=== PATIENT | male | born 1955 | race Caucasian/White ===

== ENCOUNTER 2020-02-20 11:49 | Outpatient (CLI) | payer MEDICARE, SELFPAY ==
--- NOTE | 2020-02-20 11:57 | CT_ITS ---
WS: [id number] CT ABDOMEN AND PELVIS NONCONTRAST HISTORY: ABD PAIN, inflammatory bowel disease. Prior surgery. TECHNIQUE: Imaging performed through the abdomen and pelvis. Coronal and sagittal reformats are submi tted. All CT scans at [facility] use at least one of these dose optimization techniques: automated exposure control; mA and/or kV adjustment per patient size (includes targeted exams where d ose is matched to clinical indication); or iterative reconstruction. DLP: 1147.73 mGy-cm. COMPARISON: None available. Lower thorax: Lung bases are clear. No hiatal hernia. Liver: Normal, no mass or intrahepatic dilatation. Gallbladder: Small amount of increased density in the dependent portion of the gallbladder. No inflam mation. Pancreas: Normal. Spleen: Normal. Adrenal glands: RIGHT adrenal mass is well-circumscribed measuring 2.8 cm. Normal LEFT adrenal gland. Right kidney: Normal size with no stones, masses or atrophy. Left kidney: Small, 2 to 3 mm nonobstructing calcifications. Aorta: Mild atherosclerosis with no aneurysm. No free fluid, intraperitoneal air or significant lymphadenopathy. GI tract: No GI tract obstruction. The appendix is not definitely visualized. There are numerous dive rticula within the descending and sigmoid colon. No acute inflammation. Surgical anastomotic site of the distal sigmoid without adjacent soft tissue mass. No stricture. Abdominal wall: Intact. Pelvis: Normally distended urinary bladder. Central prostate gland calcifications. Osseous structures: No osteoblastic or osteolytic bone disease. Healed rib fracture in the posterior inferior RIGHT thorax. CT/CT abdomen pelvis wo con [id number] IMPRESSION: 1. Sigmoid anastomotic site is normal. No recurrent mass or adjacent inflammat ion or stricture. 2. Diverticulosis within the descending and sigmoid colon. No evidence for acu te diverticulitis. 3. Suspect there may be small stones layering in the gallbladder. To confirm c holelithiasis RIGHT upper quadrant ultrasound can be obtained. 4. Well-circumscribed RIGHT adrenal mass measures 2.8 cm. With no history of m alignancy this is most likely a benign adenoma.
== END 2020-02-20 11:50 | disposition home or self-care (01) ==
LOC: RADWPI 11:56
PROVIDERS: Family Provider Internal Medicine; PCP Internal Medicine; Visit Provider Nurse Practitioner Family
DX: R10.9 Unspecified abdominal pain (principal); Z98.0 Intestinal bypass and anastomosis status; K58.9 Irritable bowel syndrome, unspecified; K57.30 Diverticulosis of large intestine without perforation or abscess without bleeding; R19.00 Intra-abdominal and pelvic swelling, mass and lump, unspecified site
CPT/HCPCS: 74176

== ENCOUNTER 2020-03-10 06:36 | Outpatient (CLI) | payer MEDICARE, SELFPAY ==
--- NOTE | 2020-03-10 06:53 | US_ITS ---
WS: [id number] RIGHT UPPER QUADRANT ULTRASOUND HISTORY: ABDOMINAL PAIN COMPARISON: None available. Liver: 13.4 cm in length. Mildly coarsened echotexture. No mass. Normal bile ducts. Gallbladder: Small amount of sludge and tiny layering stones in the gallbladder. No pericholecystic f luid or gallbladder wall thickening. CBD: 0.4 cm Pancreas: Poorly visualized. Right kidney: 10.6 cm in length. Normal echogenicity with no mass or hydronephrosis. Aorta and IVC: Unremarkable. No ascites. US/US gall bladder [id number] IMPRESSION: 1. Small amount of gallbladder sludge and tiny stones. No evidence for acute c holecystitis. 2. No biliary dilatation.
== END 2020-03-10 06:37 | disposition home or self-care (01) ==
LOC: RAD 06:40
PROVIDERS: PCP Nurse Practitioner Family; Visit Provider Nurse Practitioner Family
DX: R10.9 Unspecified abdominal pain (principal); K80.80 Other cholelithiasis without obstruction
CPT/HCPCS: 76705

== ENCOUNTER 2020-04-08 06:49 | Day surgery (SDC) | payer MEDICARE, SELFPAY ==
[2020-04-07 13:28] VITALS: BMI 35.9
[2020-04-08 07:17] VITALS: BP 108/79; PULSE 90; RESP 18; TEMP 36.6; O2SAT 96
[2020-04-08] MEDS: sodium chloride 0.9% 1,000 ML 30 ML IV (07:36)
--- NOTE | 2020-04-08 07:36 | P.ANESASSM_ITS ---
Pre-Anesthetic Assessment Pre-Anesthetic Assessment: Height/Weight: Height 1.68 m Weight 101.151 kg Temp Pulse Resp BP Pulse Ox 97.8 F 90 18 108/79 96 04/08/20 07:17 04/08/20 07:17 04/08/20 07:17 04/08/20 07:17 04/08/20 07:17 Preop Diagnosis: Hematochezia Proposed Procedure: Operation Date: 04/08/20 08:40 Proposed Procedures p EGD 27509 R10.9(Not Applicable) - Carlton Hernandes MD s Colonoscopy 24805 K92.1(Not Applicable) - Carlton Hernandes MD Familial anesthetic complications: None Was Beta Alesha taken within 24 hours: N/A Last intake: Intake Last Liquid Date 04/07/20 Last Liquid Time 23:00 Last Solid Date 04/06/20 Last Solid Time 20:00 Social: Social History: No alcohol and No tobacco Exam: Pre-Anes Outpt Exam: alert, oriented x 3, clear to auscultation bi laterally and regular rate & rhythm Airway: Cervical ROM: WNL Additional comments: multiple missing teeth Pulmonary: Pulmonary: Asthma (mild) CV/HEM: CV/HEM: HTN : : None reported Hepatic: Hepatic: None reported GI: GI: GERD Metabolic: Metabolic: None reported Comments: pre - DM Musc/skel: Musc/skel: None reported Neuropsych: Neuropsych: None reported Anesthetic Plan: ASA status: 3 Anesthesia: MAC Risk of > 500 ml blood loss (7ml/kg in children): No Meds/Allergies Current Medications: Current Medications Generic Name Dose Route Start Last Admin Trade Name Freq PRN Reason Stop Dose Admin Sodium Chloride 1,000 mls @ 30 ml s/hr 04/08/20 07:30 04/08/20 07:36 Sodium Chloride 0.9% IV 04/09/20 07:29 30 mls/hr .Q24H MERA Administration PFSH Anesthesia PFSH: Medical History (Updated 03/09/20 @ 16:12 by Carlton Hernandes MD) Abdominal pain Anxiety and depression GERD (gastroesophageal reflux disease) Hematochezia History of bleeding ulcers Renal mass Surgical History History of appendectomy History of colon resection History of colonoscopy History of hernia repair Family History Denies family history of Anesthesia complication Bleeding disorder Social History Smoking and tobacco status: never smoked Data Anesthesia Cardiac Studies: No Data to Display
--- NOTE | 2020-04-08 08:53 | W.PM.OPSUD ---
Surgery/Procedure H&P Update DATE OF PROCEDURE: April 08, 2020 DATE H&P PERFORMED: 03/09/20 H&P UPDATE INFORMATION: I have reviewed H&P completed within last 30 days, I have examined patient prior to procedure and No changes to prior documentation PREOP DIAGNOSIS: Hematochezia PRIMARY INDICATION FOR PROCEDURE: The same PLANNED PROCEDURE: Operation Date: 04/08/20 08:40 Proposed Procedures p EGD 22911 R10.9(Not Applicable) - Carlton Hernandes MD s Colonoscopy 05264 K92.1(Not Applicable) - Carlton Hernandes MD
[2020-04-08 09:30] VITALS: BP 91/71; PULSE 82; RESP 16; TEMP 37.1; O2SAT 92
--- NOTE | 2020-04-08 09:31 | ANE.PACU2 ---
Inpatient post-anesthesia follow up: Airway intact: Yes Vital signs: Temperature 98.7 F Pulse Rate 82 Respiratory Rate 16 Blood Pressure 91/71 Pulse Oximetry 92 Oxygen Delivery Me thod Nasal Cannula Oxygen Flow Rate 2 Fraction of Inspir ed Oxygen Hydration adequate: Yes Nausea and vomiting: No Pain level: 1 Mental status: Baseline
[2020-04-13 06:55] LABS: H. Pylori / CLO Test Negative
== END 2020-04-08 09:58 | disposition home or self-care (01) ==
PROVIDERS: PCP Nurse Practitioner Family; Visit Provider Surgery
PROC: 0DJ08ZZ Inspection of Upper Intestinal Tract, Via Natural or Artificial Opening Endoscopic (ICD-10-PCS; CPT 43235; principal; 2020-04-08 08:40)
PROC: 0DJD8ZZ Inspection of Lower Intestinal Tract, Via Natural or Artificial Opening Endoscopic (ICD-10-PCS; CPT 45378; 2020-04-08 08:40)
DX: K92.1 Melena (principal); R10.9 Unspecified abdominal pain; K57.30 Diverticulosis of large intestine without perforation or abscess without bleeding; K29.70 Gastritis, unspecified, without bleeding; J45.909 Unspecified asthma, uncomplicated; I10 Essential (primary) hypertension; K21.9 Gastro-esophageal reflux disease without esophagitis; E11.9 Type 2 diabetes mellitus without complications
CPT/HCPCS: 12345; 43239; 45378; 87077; J2704; J7030

== ENCOUNTER → 2020-12-01 14:35 | Outpatient (BNVA) | payer MEDICARE, SELFPAY | PROVIDERS: PCP Nurse Practitioner Family; Visit Provider Podiatrist Foot & Ankle Surgery | DX: M79.671 Pain in right foot (principal); M19.071 Primary osteoarthritis, right ankle and foot; M77.31 Calcaneal spur, right foot | CPT/HCPCS: 73630 ==

== ENCOUNTER 2021-11-18 01:09 | Inpatient (IN) | payer MEDICARE, SELFPAY ==
[2021-11-18] VITALS (110 sets, daily range): BP systolic 64–127; BP diastolic 41–87; PULSE 64–99; RESP 13–33; TEMP 36.4; O2SAT 85–100; BMI 35.7
--- NOTE | 2021-11-18 01:21 | ECG_ITS ---
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 Measurements Intervals [place] Rate: 74 P: 245 MD: 121 QRS: -25 QRSD: 138 T: 37 QT: 441 QTc: 492 Interpretive Statements JUNCTIONAL RHYTHM BORDERLINE LEFT AXIS DEVIATION [QRS AXIS < -20] RIGHT BUNDLE BRANCH BLOCK [120+ ms QRS DURATION, UPRIGHT V1, 40+ ms S IN I/aVL/V4/V5/V6] Compared to ECG 11/18/2021 03:24:07 Junctional rhythm now present Sinus rhythm no longer present Electronically Signed On 11-19-2021 9:28:03 THIRD HAND by Perla Santiago M.D. [id number]
--- NOTE | 2021-11-18 01:21 | XRR_ITS ---
PROCEDURE INFORMATION: Exam: XR Chest Exam date and time: 11/18/2021 1:21 AM Age: 66 years old Clinical indication: Patient HX: General weakness with diaphoresis. TECHNIQUE: Imaging protocol: XR of the chest. Views: 1 view. COMPARISON: CT abdomen pelvis con [id number] 02/20/2020 12:22 PM FINDINGS: Lungs: There are patchy opacity seen in the left lower hemithorax, findings that may represent atelectasis although left basilar pneumonia cannot be excluded. Some strandy opacities are seen in the right lung base likely representing atelectasis. Pleural spaces: Unremarkable. No pleural effusion. No pneumothorax. Heart/Mediastinum: Unremarkable. No cardiomegaly. Bones/joints: Unremarkable. XR/XR chest 1V portable [id number] IMPRESSION: 1. Patchy opacities in the left lower hemithorax compatible with a left basilar atelectasis versus pneumonia. 2. Some strandy opacities in the right lung base likely represents atelectasis.
--- NOTE | 2021-11-18 01:22 | CTR_ITS ---
PROCEDURE INFORMATION: Exam: CT Head Without Contrast Exam date and time: 11/18/2021 1:22 AM Age: 66 years old Clinical indication: Patient HX: General weakness with diaphoresis. Patient states history of skull fracture as a pediatric. TECHNIQUE: Imaging protocol: Computed tomography of the head without contrast. Radiation optimization: All CT scans at this facility use at least one of these dose optimization techniques: automated exposure control; mA and/or kV adjustment per patient size (includes targeted exams where dose is matched to clinical indication); or iterative reconstruction. COMPARISON: No relevant prior studies available. RADIATION DOSE METRICS: Total DLP (mGy-cm): 1233.16 FINDINGS: Brain: There is hypoattenuation seen within the deep white matter and subcortical white matter of the right occipital lobe possibly representing a chronic infarction. Cerebral ventricles: See Vasculature finding. Paranasal sinuses: Mucosal thickening and fluid is seen within the left maxillary sinus. Mastoid air cells: Visualized mastoid air cells are well aerated. Vasculature: There is dolichoectasia of the left vertebral artery and basilar artery. There is a rounded hyperdense mass seen the level of the foramen of Monro measuring approximately 7.5 x 8.7 x 6.4 mm. This may represent a colloid cyst. Bones/joints: Unremarkable. No acute fracture. Soft tissues: Unremarkable. CT/CT head wo con* [id number] IMPRESSION: 1. A hyperdense rounded mass at the foramina Duran measuring 7.5 x 8.7 x 6.4 mm likely represents a colloid cyst. 2. Hypoattenuation present in the deep white matter and subcortical white matter of the right occipital lobe may represent a chronic infarction. There are no prior imaging studies available for comparison. As such, further evaluation with MRI including diffusion-weighted imaging is suggested. 3. 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
[2021-11-18] MEDS: sodium chloride 0.9% 1,000 ML 999 ML IV ×3 (02:00→04:18)
--- NOTE | 2021-11-18 02:01 | ED_ITS ---
HPI - General Adult General: Chief complaint: General Medical Stated complaint: WEAKNESS, DIFF WALKING Time Seen by Provider: 11/18/21 01:36 Source: patient and EMS Mode of arrival: EMS Limitations: no limitations History of Present Illness: HPI narrative: 66-year-old male states he got his Moderna booster 1 week ago states that ever since then he has been having increasing weakness malaise loss of appetite decreased oral intake. States he is also had some shortness of breath. Denies any cough denies any fever pulse ox here is 95% on room air. He states that today has had just extreme malaise with feeling dehydrated and having a hard time just getting out of bed due to his weakness. Denies any urinary complaints he is able speak full sentences here is well-appearing here. Associated symptoms: Reports dyspnea and malaise; Deny chest pain, headache(s), nausea, rash or vomiting Review of Systems Const: Reports: body aches, fatigue and malaise Eyes: Denies: blurry vision or eye discomfort ENMT: Denies: throat pain or dental pain Card: Denies: chest pain Resp: Reports: dyspnea GI: Denies: abdominal pain, nausea, vomiting or diarrhea : Denies: dysuria Musc: Denies: neck pain or back pain Skin/Breast: Denies: rash Neuro: Denies: headache(s) Psych: Denies: depression Yazan/Lymph: Denies: easy bruising All/Imm: Denies: urticaria PFSH ED PFSH: Medical History (Updated 11/18/21 @ 04:18 by Arley Mijares MD) Abdominal pain Anxiety and depression GERD (gastroesophageal reflux disease) Hematochezia History of bleeding ulcers Renal mass Surgical History History of appendectomy History of colon resection History of colonoscopy History of hernia repair Family History Denies family history of Anesthesia complication Bleeding disorder Social History Smoking and tobacco status: never smoked Lives independently: Yes Household members: spouse Marital status: Current occupational status: retired History of recent travel: No Current gender identity: Male Physical Exam Const: COMMON NORMALS: no acute distress, patient oriented x3 and healthy appearing HENMT: COMMON NORMALS: normocephalic and atraumatic HEAD & SCALP: normocephalic and atraumatic Eye: COMMON NORMALS: Equal, round and reactive pupils present and EOMs intact bilaterally PUPIL: Yes Equal, round and reactive pupils present Neck/C-Spine: COMMON NORMALS: full ROM and supple Chest: COMMONS NORMALS: normal inspection of the chest and normal palpation of entire chest wall Resp: COMMON NORMALS: normal respiratory effort, No retractions, No use of accessory muscles and clear to auscultation bilaterally AUSCULTATION: clear to auscultation bilaterally Cardio: COMMON NORMALS: regular rate, regular rhythm and No murmurs present (Cardio) RATE: regular rate RHYTHM: regular rhythm GI: COMMON NORMALS: Normal to inspection, nondistended, normoactive bowel sounds present, Soft to palpation, non-tender and no masses PALPATION: Yes Soft to palpation Extremity: COMMON NORMALS: normal to inspection and full ROM Neuro: COMMON NORMALS: patient oriented x3, moves all extremities and no focal motor deficits Psych: COMMON NORMALS: mental status grossly normal, Normal thought process present and cooperative THOUGHT PROCESS: Normal thought process present Skin: COMMON NORMALS: no rashes or lesions noted and no wounds GENERAL SKIN EXAM: no rashes or lesions noted Procedures Central Line Placement Right IJ: Time Out Performed: Yes Patient Placed on Monitor/Pulse Ox: Yes MD Prep: mask and gown Central Line Prep: Povidone-Iodine 1% Local Anesthetic: lidocaine 1% Amount of anesthesia used (mL): 5 Ultrasound Used for Placement: Yes Central Line Lumen Inserted: triple Post Procedure: sutured in place, good blood return, all ports aspirated, flushed, capped and sterile dressing applied Post Procedure X-Ray: tip of catheter in good position and no pneumothorax seen Patient Tolerated Procedure: well Complications: none Course Vital Signs: Vital signs: Vital Signs Temperature 97.6 F 11/18/21 02:56 Pulse Rate 68 11/18/21 02:56 Respiratory Rate 19 H 11/18/21 02:56 Blood Pressure 64/41 11/18/21 02:56 Pulse Oximetry 96 11/18/21 02:56 MDM - General Adult MDM Narrative: Medical decision making narrative: Patient presents here with hypotension likely due to dehydration and septic shock x-ray shows a possible pneumonia he had no hypoxia here. Labs do show dehydration blood pressure did not improve after IV fluids central line was started and patient started on pressors. He has been given IV antibiotics as well. D-dimer slightly elevated likely from infection he has no signs of pulmonary embolism cannot do a CT angio at this time due to his D-dimer. EKG is normal. Lab Data: Labs: Lab Results 11/18/21 11/18/21 11/18/21 02:40 02:40 02:40 WBC 8.6 10^3/uL 10^3/ uL (4.0-10.0) RBC 3.80 10^6/uL L 10 ^6/uL (4.1-5.3) Hgb 11.4 g/dL L g/dL (11.7-16.6) Hct 35.8 % L % (42.0-52.0) MCV 94.2 fl H fl (80-94) MCH 30.0 pg pg (28.0-34.0) MCHC 31.8 g/dL g/dL (30.0-36.0) RDW 14.7 % % (12.1-15.1) Plt Count 203 10^3/cmm 10^3 /cmm (130-400) MPV 10.7 fL H fL (7.4-10.4) Neut % (Auto) 70.6 % % Lymph % (Auto) 17.7 % % [place] % (Auto) 11.0 % % Eos % (Auto) 0.0 % % Baso % (Auto) 0.1 % % Neut # (Auto) 6.06 10^3/uL 10^3 /uL (1.8-7.7) Lymph # (Auto) 1.5 10^3/uL 10^3/ uL (0.8-4.8) [place] # (Auto) 0.9 10^3/uL 10^3/ uL (0.2-0.9) Eos # (Auto) 0.0 10^3/uL 10^3/ uL (0.0-0.8) Baso # (Auto) 0.0 10^3/uL 10^3/ uL (0.0-0.1) Nucleated RBC % (a uto) 0 % % Nucleated RBCs # 0.0 /100WBC /100W BC D-Dimer Sodium 130 mmol/L L mmol /L (136-145) Potassium 5.3 mmol/L H mmol /L (3.5-5.1) Chloride 94 mmol/L L mmol/ L (98-107) Carbon Dioxide 15 mmol/L L mmol/ L (22-29) Anion Gap 26.3 H (5-19) BUN 42 mg/dL H mg/dL (8-23) Creatinine 3.4 mg/dL H mg/dL (0.7-1.2) GFR Calculation 18.1 mL/min L mL/ min (90-130) Glucose 241 mg/dL H mg/dL (65-115) Calculated Osmolal ity 288 mOsm/kg mOsm/ kg (285-295) Lactic Acid Calcium 7.8 mg/dL L mg/dL (8.5-10.5) Total Bilirubin 0.7 mg/dL mg/dL (0.15-1.2) AST 75 U/L H U/L (0-40) ALT 56 U/L H U/L (0-41) Alkaline Phosphata se 72 IU/L IU/L (40-130) Troponin T Baselin e 60 ng/L H ng/L (0-15) NT-Pro-B Natriuret Pep 235 pg/mL H pg/mL (0-125) Total Protein 6.5 g/dL L g/dL (6.6-8.7) Albumin 3.7 g/dL g/dL (3.5-5.2) Globulin 2.8 g/dL g/dL (1.3-4.6) SARS-CoV-2 Ag (Rap id) 11/18/21 11/18/21 11/18/21 02:40 02:40 02:51 WBC RBC Hgb Hct MCV MCH MCHC RDW Plt Count MPV Neut % (Auto) Lymph % (Auto) [place] % (Auto) Eos % (Auto) Baso % (Auto) Neut # (Auto) Lymph # (Auto) [place] # (Auto) Eos # (Auto) Baso # (Auto) Nucleated RBC % (a uto) Nucleated RBCs # D-Dimer 1.52 ug/mIFEU H u g/mIFEU (0-0.59) Sodium Potassium Chloride Carbon Dioxide Anion Gap BUN Creatinine GFR Calculation Glucose Calculated Osmolal ity Lactic Acid 3.6 mmol/L H mmol /L (0.5-2.2) Calcium Total Bilirubin AST ALT Alkaline Phosphata se Troponin T Baselin e NT-Pro-B Natriuret Pep Total Protein Albumin Globulin SARS-CoV-2 Ag (Rap id) Negative (Negative) EKG Data^: EKG 1: Attestation: I personally reviewed and interpreted this EKG as follows: EKG interpretation date: 11/18/21 EKG interpretation time: 03:24 Interpretation: NSR HR [address] OR T WAVE ABNORMALITIES QRS 139 QTC 482 Computer generated interpretation: Head CT 11/18/21 01:22 IMPRESSION: 1. A hyperdense rounded mass at the foramina Duran measuring 7.5 x 8.7 x 6.4 mm likely represents a colloid cyst. 2. Hypoattenuation present in the deep white matter and subcortical white matter of the right occipital lobe may represent a chronic infarction. There are no prior imaging studies available for comparison. As such, further evaluation with MRI including diffusion-weighted imaging is suggested. 3. 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 Chest X-Ray 11/18/21 04:04 IMPRESSION: 1. Right internal jugular vein central venous line placed with tip at the level of the superior vena cava. 2. Strandy and patchy opacities in the left lung base again seen possibly representing atelectasis although left basilar pneumonia cannot be excluded. Critical Care Time Critical Care Time: Critical Care Time: Yes Total Critical Care Time: 45 Attestation: The high probability of a clinically significant, sudden or life threatening deterioration of the patient's [cv, resp] system(s) required my full and direct attention, intervention and personal management. The critical care time is as shown. This time is in addition to time spent performing any reported procedures but includes the following: [x] Data and vital sign review and interpretation [x] Patient assessment, examination and intervention [x] Documentation [x] Medication orders and management Discharge Plan Discharge Patient Disposition: Admitted As Inpatient Admit Provider: Dean Kenny Clinical Impression: Septic shock, Pneumonia, Dehydration Condition: Stable Coding Level of Care Code ED Link Machine Operator for Chg Fwd Exam Comprehensive
[2021-11-18 02:46] LABS: Basophils % 0.1 %; Hematocrit 35.8 % (42.0-52.0); Hemoglobin 11.4 g/dL (11.7-16.6); Lymphocytes # 1.5 10^3/uL (0.8-4.8); Lymphocytes % 17.7 %; Mean Corpuscular HGB Conc 31.8 g/dL (30.0-36.0); Mean Corpuscular Volume 94.2 fl (80-94); Mean Platelet Volume 10.7 fL (7.4-10.4); Monocytes # 0.9 10^3/uL (0.2-0.9); Neutrophils # 6.06 10^3/uL (1.8-7.7); Neutrophils % 70.6 %; Nucleated Red Blood Cells % 0 %; Platelet Count 203 10^3/cmm (130-400); Red Cell Distribution Width 14.7 % (12.1-15.1); White Blood Count 8.6 10^3/uL (4.0-10.0)
[2021-11-18 03:04] LABS: Lactic Sepsis W/Reflex 3.6 mmol/L (0.5-2.2)
[2021-11-18 03:05] LABS: Troponin(5th) Baseline 60 ng/L (0-15)
[2021-11-18 03:06] LABS: D Dimer 1.52 ug/mIFEU (0-0.59)
[2021-11-18 03:20] LABS: SARS Covid-2 Antigen Negative (Negative)
[2021-11-18 03:20] LABS: Alanine Aminotransferase 56 U/L (0-41); Albumin Level 3.7 g/dL (3.5-5.2); Alkaline Phosphatase 72 IU/L (40-130); Aspartate Amino Transferase 75 U/L (0-40); Blood Urea Nitrogen 42 mg/dL (8-23); Calcium 7.8 mg/dL (8.5-10.5); Carbon Dioxide 15 mmol/L (22-29); Globulin 2.8 g/dL (1.3-4.6); Glomerular Filtration Rate 18.1 mL/min (90-130); Glucose 241 mg/dL (65-115); Total Bilirubin 0.7 mg/dL (0.15-1.2); Total Protein 6.5 g/dL (6.6-8.7)
[2021-11-18 03:21] LABS: Anion Gap 26.3 (5-19); Chloride 94 mmol/L (98-107); Osmolality Calculated 288 mOsm/kg (285-295); Potassium 5.3 mmol/L (3.5-5.1); Sodium 130 mmol/L (136-145)
--- NOTE | 2021-11-18 03:21 | ECG_ITS ---
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 Measurements Intervals [place] Rate: 67 P: 62 UT: 176 QRS: 9 QRSD: 139 T: 55 QT: 467 QTc: 494 Interpretive Statements SINUS RHYTHM RIGHT BUNDLE BRANCH BLOCK [120+ ms QRS DURATION, UPRIGHT V1, 40+ ms S IN I/aVL/V4/V5/V6] No previous ECG available for comparison Electronically Signed On 11-18-2021 19:19:46 PROGRAM ASSOCIATE by Perla Santiago M.D. [email or web address] [email or web address] memorial [id number]
[2021-11-18 03:25] LABS: NT Pro B Type Natriuretic Pept 235 pg/mL (0-125)
--- NOTE | 2021-11-18 04:04 | XRR_ITS ---
PROCEDURE INFORMATION: Exam: XR Chest Exam date and time: 11/18/2021 4:04 AM Age: 66 years old Clinical indication: Other vascular access device placement or adjustment; Central line, non-tunnelled; Patient HX: Check S/P central line placement TECHNIQUE: Imaging protocol: XR of the chest. Views: 1 view. COMPARISON: CR (CHEST, ) 11/18/2021 1:38 AM FINDINGS: Tubes, catheters and devices: A right internal jugular vein central venous line is placed with its tip at the level of the superior vena cava. Lungs: See Bones/joints finding. Pleural spaces: Unremarkable. No pleural effusion. No pneumothorax. Heart/Mediastinum: Unremarkable. No cardiomegaly. Bones/joints: There is evidence of healed right rib fractures. Strandy opacities are again seen within the left lower hemithorax compatible with atelectasis versus infiltrates and pneumonia. XR/XR chest 1V portable [id number] IMPRESSION: 1. Right internal jugular vein central venous line placed with tip at the level of the superior vena cava. 2. Strandy and patchy opacities in the left lung base again seen possibly representing atelectasis although left basilar pneumonia cannot be excluded.
[2021-11-18] MEDS: cefTRIAXone 1,000 MG in sodium chloride 0.9% (plus) 50 ML 100 MG IV (04:17)
[2021-11-18 04:31] LABS: Reflex Lactate Order REFLEX LACTIC ORDERD
--- NOTE | 2021-11-18 04:52 | P.HP_ITS ---
Providers/Chief Complaint Admitting Physician: Dean Kenny MD Primary Care Provider: Aaliyah Grayson APN Chief Complaint: WEAKNESS, DIFF WALKING History of Present Illness Christophe Ramon is a 66 year old male with no significant past medical history came in with chief complaint of worsening malaise, generalized weakness, going on for the last 1 week, it started after he took his booster dose of Moderna, Since then he has been feeling progressively weak, has experienced decreasing appetite and poor oral intake. Has mild shortness of breath, no cough. He denies any fever, chest pain, palpitation, nausea vomiting. Upon arrival in the ER he was found to be severely hypotensive with systolic blood pressure in 60s. He was given 3 L normal saline bolus, as well as was started on Levophed, with improvement in his blood pressure, he also received a dose of ceftriaxone and azithromycin. Pertinent imaging studies: X-ray chest: Patchy opacities in the left lower hemithorax compatible with a left basilar atelectasis versus pneumonia. 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 No acute intracranial pathology. EKG: SR with right bundle branch block Pertinent labs: WBC 8.6 H&H 11.4/ 35 , PLT : 203 , serum sodium: 130, serum potassium 5.3, serum bicarbonate 15, BUN and serum creatinine:42/3.4 , AST 75 ALT 56 , ALP : 72 , Lactic acid 3.6, D-dimer: 1.52 Baseline troponin: 60 proBNP 235 Rapid COVID-negative Review of Systems Const: Denies: diaphoresis Card: Denies: palpitations, edema, swelling of feet/ankles, dyspnea on exe rtion, orthopnea or leg pain with exertion Resp: Denies: productive cough, wheezing or pain on inspiration GI: Denies: abdominal pain, nausea, vomiting, diarrhea or constipation : Denies: flank pain or difficulty urinating Musc: Denies: back pain, extremity pain or extremity swelling Neuro: Denies: headache(s), difficulty walking or confusion Medications/Allergies Home Medications Medication Instructions Recorded Confirmed Last Taken Type cyclobenzaprine 10 mg tablet 10 mg PO TID 03/04/20 01/07/21 Unknown History lorazepam 0.5 mg tablet 0.5 mg PO BID PRN 03/04/20 01/07/21 Unknown History pantoprazole 40 mg tablet,delayed 40 mg PO BID tab 03/04/20 01/07/21 Unknown History release tizanidine 4 mg capsule 4 mg PO BID PRN 03/04/20 01/07/21 Unknown History sulfamethoxazole 800 1 tab PO BID #20 tab 01/07/21 01/07/21 Unknown Rx mg-trimethoprim 160 mg tablet Allergies Allergy/AdvReac Type Severity Reaction Status Date / Time shellfish derived Allergy Severe ALGY-Anaphy Verified 01/07/21 16:49 laxis Penicillins Allergy Unknown Unknown Verified 01/07/21 16:49 PFSH Acute PFSH: Medical History (Updated 11/18/21 @ 04:56 by Dean Kenny MD) Abdominal pain Anxiety and depression GERD (gastroesophageal reflux disease) Hematochezia History of bleeding ulcers Renal mass Surgical History History of appendectomy History of colon resection History of colonoscopy History of hernia repair Family History Denies family history of Anesthesia complication Bleeding disorder Social History Smoking and tobacco status: never smoked Lives independently: Yes Household members: spouse Marital status: Current occupational status: retired History of recent travel: No Current gender identity: Male Vitals/I&O/Wt Last Vital Signs Temp 97.6 F 11/18/21 02:56 Pulse 66 11/18/21 04:25 Resp 18 11/18/21 04:25 BP 119/70 11/18/21 04:25 Pulse Ox 95 11/18/21 04:25 Weight last 48 hrs Weight 100.465 kg Physical Exam Const: COMMON NORMALS: patient oriented x3 HENMT: COMMON NORMALS: normocephalic and atraumatic HEAD & SCALP: normocephalic and atraumatic Resp: COMMON NORMALS: clear to auscultation bilaterally EFFORT & INSPECTION: Yes symmetric chest movement AUSCULTATION: clear to auscultation bilaterally Cardio: COMMON NORMALS: regular rate, regular rhythm, S1 normal heart sound present, S2 normal heart sound present, No gallops present (Cardio), No murmurs present (Cardio), No rub (Cardio) and Peripheral pulses 2+ throughout RATE: regular rate RHYTHM: regular rhythm HEART SOUNDS: S1 normal heart sound present and S2 normal heart sound present PERIPHERAL PULSES: Peripheral pulses 2+ throughout GI: COMMON NORMALS: Normal to inspection, nondistended, normoactive bowel sounds present, Soft to palpation, non-tender, No hepatosplenomegaly present and no masses AUSCULTATION: Yes normoactive bowel sounds PALPATION: Yes Soft to palpation and Yes No hepatosplenomegaly present RECTAL EXAM: Yes deferred Extremity: COMMON NORMALS: no clubbing, cyanosis or edema and no pedal edema Neuro: COMMON NORMALS: patient oriented x3 Data : 11/18/21 02:40 11/18/21 02:40 Micro: Microbiology 11/18/21 02:40 Blood Culture - Preliminary Blood SPECIMEN COLLECTED 11/18/21 02:40 Blood Culture - Preliminary Blood SPECIMEN COLLECTED A&P Assessment and plan (1) Shock: Status: Acute (2) Dehydration: Status: Acute (3) BART (acute kidney injury): Status: Acute (4) Hyponatremia: Status: Acute (5) Hyperkalemia: Status: Acute (6) Metabolic acidosis: Status: Acute (7) Elevated lactic acid level: Status: Acute Additional A&P Information 66 year old male with no significant past medical history came in with chief complaint of worsening malaise, generalized weakness, going on for the last 1 week, it started after he took his booster dose of Moderna, Since then he has been feeling progressively weak, has experienced decreasing appetite and poor oral intake. Has mild shortness of breath, no cough. He denies any fever, chest pain, palpitation, nausea vomiting. #Hypovolemic shock: Likely secondary to poor oral intake. Follow blood culture Repeat lactic acid Procalcitonin Follow lower extremity Doppler vein Patient has received 3 L normal saline bolus, currently he is on Levophed. Continue normal saline at 125 cc an hour Monitor intake output #Hypovolemic hyponatremia: Likely secondary to dehydration secondary to poor oral intake. Continue to monitor BMP #BART versus BART on CKD: Likely prerenal BART secondary to hypotension, cannot conclusively rule out ATN Admission serum creatinine:3.4 Baseline serum creatinine unknown. Monitor BMP every 4 hours Monitor intake output chart Avoid nephrotoxic Urinary electrolytes Possible renal consult #Metabolic acidosis: Likely secondary to BART and dehydration: Plan as above #Elevated lactic acid: Likely secondary to hypotension: Low clinical suspicion for infection. Follow repeat lactic acid level #Hyperkalemia: No significant EKG changes Follow repeat serum potassium level #CODE STATUS: Full code #DVT prophylaxis: On heparin Attestations Medical Necessity Statement*: Patient needs to be in hospital for management of hypovolemic shock. Anticipated length of stay greater than two midnights. Time Spent in Patient Care: Greater than 35 minutes Critical Care Time: Critical Care Time (min): 40 Other Attestations: The high probability of a clinically significant, sudden or life threatening deterioration of the patient's [] system(s) required my full and direct attention, intervention and personal management. The critical care time is as shown. This time is in addition to time spent performing any reported procedures but includes the following: [x] Data and vital sign review and interpretation [x] Patient assessment, examination and intervention [x] Documentation [x] Medication orders and management Coding Level of Care Code Acute Knitted Goods Shaper for [facility] Fwd Exam Detailed Diagnoses Shock R57.9 Dehydration E86.0 BART (acute kidney injury) N17.9 Hyponatremia E87.1 Hyperkalemia E87.5 Metabolic acidosis E87.2 Elevated lactic acid level R79.89
[2021-11-18 04:54] LABS: ABG PCO2 29.7 mmHg (35-45); ABG PH Result 7.32 (7.35-7.45); Arterial Blood Gas Hematocrit 31.8 % (42-52); Base Excess ABG -9.7 mmol/L (-2.0-2.0); Blood Gas Allen Test Pos; Blood Gas Sample Site Radial, right; Blood Gas Sample Type Arterial; HCO3 ABG 15.3 mmol/L (22-26); PO2 ABG 75.6 mmHg (80.0-100.0)
[2021-11-18] MEDS: azithromycin 500 MG in sodium chloride 0.9% 250 ML 250 MG IV (05:11)
--- NOTE | 2021-11-18 05:11 | USCV_ITS ---
Christophe Ramon Age: 66 Gender: M : 1955 Exam Date: 11/18/2021 07:02 Ordering Phys: Dean Kenny MD Technologist: Exam Location: [facility] [place]: ? DVT HISTORY: Swelling. PROCEDURES: The venous duplex Doppler examination of both lower extremities was performed in the standard fashion. The following venous structures were evaluated: common femoral vein, profunda vein, proximal portion of the greater saphenous vein, superficial femoral vein, and the popliteal vein. FINDINGS: Normal 2-D Doppler and augmentation and compressibility throughout the lower extremity venous structures. Additional imaging through the proximal calf veins also reveals no thrombus. Limited evaluation of the greater saphenous vein is patent with no thrombus. CONCLUSIONS No DVT bilateral lower extremities. Dr. Leigh Marsh DO (Electronically Signed) Final Date: 18 November 2021 09:18 S
--- NOTE | 2021-11-18 05:56 | USCV_ITS ---
Christophe Ramon Age: 66 Gender: M : 1955 Exam Date: 11/18/2021 06:46 Ordering Phys: Dean Kenny MD Technologist: Exam Location: [facility] – [place] Indication: SHOCK BP: 110 / 70 HR: 74 Rhythm: Sinus Technical Quality: Adequate MEASUREMENTS (Male / Female) Normal Values 2D ECHO LV Diastolic Diameter PLAX 5.5 cm 4.2 - 5.9 / 3.9 - 5.3 cm LV Systolic Diameter PLAX 2.7 cm IVS Diastolic Thickness 1.3 cm 0.6 - 1.0 / 0.6 - 0.9 cm IVS Systolic Thickness 1.5 cm LVPW Diastolic Thickness 1.4 cm 0.6 - 1.0 / 0.6 - 0.9 cm LVPW Systolic Thickness 1.5 cm LVOT Diameter 2.1 cm LV Ejection Fraction 2D Teich 80.7 % LV Ejection Fraction MOD 2C 74.5 % LV Ejection Fraction 2C AL 75.6 % LA Diameter 3.4 cm LA Width 3.8 cm LA Height 5.8 cm RA Width 3.7 cm RA Height 5.6 cm Aorta at Sinotubular Diameter 4.9 cm M-MODE LV Diastolic Diameter MM 7.5 cm 4.2 - 5.9 / 3.9 - 5.3 cm LV Systolic Diameter MM 4.4 cm LV Ejection Fraction MM Teich 69.7 % IVS Diastolic Thickness MM 1.0 cm 0.6 - 1.0 / 0.6 - 0.9 cm IVS Systolic Thickness MM 2.1 cm LVPW Diastolic Thickness MM 1.2 cm 0.6 - 1.0 / 0.6 - 0.9 cm LVPW Systolic Thickness MM 2.3 cm RV Diastolic Diameter MM 1.2 cm Aortic Annulus Diameter 5.3 cm LA Ao Ratio MM 0.7 MV E Point Septal Separation 1.3 cm DOPPLER AV Peak Velocity 152.0 cm/s LVOT Peak Velocity 104.0 cm/s AV Area Cont Eq vti 2.4 cm squared AV Area Cont Eq pk 2.3 cm squared MV Area PHT 5.0 cm squared Mitral E to A Ratio 1.0 MV E' Velocity 33.0 cm/s Mitral E to MV E' Ratio 6.5 Mitral E to LV E' Lateral Ratio 5.6 Mitral E to LV E' Septal Ratio 7.7 TR Peak Velocity 149.0 cm/s TR Peak Gradient 8.9 mmHg TV Peak E Velocity 88.0 cm/s Right Atrial Pressure 3.0 mmHg Pulmonary Artery Systolic Pressu 11.9 mmHg FINDINGS Left Ventricle Normal left ventricular cavity size. Normal left ventricular systolic function. No regional wall motion abnormalities. Left ventricular ejection fraction is estimated at 69 %. Grade I/IV diastolic dysfunction (abnormal relaxation filling pattern), normal to mildly elevated filling pressures. Right Ventricle The right ventricle is normal in size and function. Right Atrium The right atrium is normal in size. Left Atrium The left atrium is normal in size. Mitral Valve Structurally normal mitral valve without significant stenosis or prolapse. There is no mitral regurgitation. Aortic Valve Mild aortic valve calcification. No aortic valve stenosis. Trace aortic valve regurgitation. Tricuspid Valve Structurally normal tricuspid valve without significant stenosis or regurgitation. Pulmonary artery systolic pressure is normal. Pulmonic Valve Structurally normal pulmonic valve without significant stenosis. There is no pulmonic regurgitation. Pericardium Normal pericardium without effusion. Aorta Normal ascending aorta dimension. CONCLUSIONS 1-Normal left ventricular cavity size. Normal left ventricular systolic function. No regional wall motion abnormalities. Left ventricular ejection fraction is estimated at 69 %. Grade I/IV diastolic dysfunction (abnormal relaxation filling pattern), normal to mildly elevated filling pressures. 2-Mild aortic valve calcification. No aortic valve stenosis. Trace aortic valve regurgitation. 3-There is no pericardial effusion. 4-Pulmonary artery systolic pressure is within normal limits. 5-Right atrial pressure is around 5 mm of mercury. 6-There are no prior echocardiogram studies to compare. Jassi Hooks MD (Electronically Signed) Final Date: 18 November 2021 18:13 S
[2021-11-18 06:16] LABS: Troponin 5 2HR 35.22 ng/L (0-15)
[2021-11-18] MEDS: heparin 5,000 unit/mL INJ 1 mL 5000 UNIT SUBCUT ×2 (06:17→17:35)
[2021-11-18] MEDS: sodium chloride 0.9% 1,000 ML 125 ML IV (06:18)
--- NOTE | 2021-11-18 07:01 | PC.NURSE ---
Transfer Note Patient transferred to ICU from ER via stretcher. Handoff received from BLANCA Brooks. Patient oriented to environment and equipment. Covering service notified. Orders reviewed and will continue to monitor. Family and/or textiles sales representative notified. All patient belongings including clothing and necklace are at bedside. No wound or skin issues noted and patient is on room air.
[2021-11-18 07:42] LABS: Ketone (Acetest) Serum Negative (Negative)
[2021-11-18 07:44] LABS: Estmated Average Glucose 192; Hemoglobin A1C 8.3 % (4.0-6.0)
[2021-11-18 10:10] LABS: Influenza A by IFA Negative (Negative); Influenza B by IFA Negative (Negative)
[2021-11-18 10:53] LABS: Troponin 5 6HR 33.38 ng/L (0-15)
[2021-11-18 11:27] LABS: Glucose Point of Care 117 mg/dL (70-110)
--- NOTE | 2021-11-18 12:06 | P.PN_ITS ---
Subjective Subjective: Interval history: This morning patient was seen, denies any fevers, does report shortness of breath with exertion, does report sinus symptoms, no nausea, no vomiting, no abdominal pain, no diarrhea Vitals/I&O/Wt Last Vital Signs Temp 97.6 F 11/18/21 02:56 Pulse 72 11/18/21 10:10 Resp 28 H 11/18/21 10:10 BP 98/66 11/18/21 10:10 Pulse Ox 94 11/18/21 10:10 11/17/21 11/18/21 11/18/21 22:59 06:59 14:59 Intake Total 3050 / 3050 1063.75 / 1063.75 Output Total 1275 / 1275 Balance 3050 / 3050 -211.25 / -211.25 Weight last 48 hrs Weight 100.465 kg Physical Exam Const: COMMON NORMALS: no acute distress and patient oriented x3 Resp: COMMON NORMALS: normal respiratory effort, No retractions and No use of accessory muscles AUSCULTATION: wheezes Cardio: COMMON NORMALS: regular rate, regular rhythm, S1 normal heart sound present and S2 normal heart sound present RATE: regular rate RHYTHM: regular rhythm HEART SOUNDS: S1 normal heart sound present and S2 normal heart sound present GI: COMMON NORMALS: Normal to inspection, nondistended, normoactive bowel sounds present, Soft to palpation and non-tender PALPATION: Yes Soft to palpation Extremity: COMMON NORMALS: no pedal edema Neuro: COMMON NORMALS: patient oriented x3 Psych: COMMON NORMALS: mental status grossly normal Data : 11/18/21 02:40 11/18/21 02:40 Micro: Microbiology 11/18/21 02:40 Blood Culture - Preliminary Blood SPECIMEN COLLECTED 11/18/21 02:40 Blood Culture - Preliminary Blood SPECIMEN COLLECTED A&P Assessment and plan (1) Shock: Status: Acute (2) Dehydration: Status: Acute (3) BART (acute kidney injury): Status: Acute (4) Hyponatremia: Status: Acute (5) Hyperkalemia: Status: Acute (6) Metabolic acidosis: Status: Acute (7) Elevated lactic acid level: Status: Acute (8) Left lower lobe pneumonia: Status: Acute (9) Sepsis: Status: Acute (10) Type 2 diabetes mellitus: Status: Acute Additional A&P Information 66 year old male with no significant past medical history came in with chief complaint of worsening malaise, generalized weakness, going on for the last 1 week, it started after he took his booster dose of Moderna, Since then he has been feeling progressively weak, has experienced decreasing appetite and poor oral intake. Has mild shortness of breath, no cough. He denies any fever, chest pain, palpitation, nausea vomiting. #Left lower lobe pneumonia with sepsis -Continue azithromycin, Rocephin -Titrate off Levophed -Titrate fluids down to 100 cc an hour -Blood cultures, sputum cultures, urine bacterial antigens -Flu negative, COVID-negative #Elevated anion gap, metabolic acidosis, lactic acidosis -Serum ketones negative -However A1c 8.3, type 2 diabetes new onset -Recheck BMP #New onset type 2 diabetes mellitus, A1c 8.2, low-dose sliding scale #Hypovolemic shock: Likely secondary to poor oral intake, type 2 diabetes, left lower lobe pneumonia Follow blood culture Follow lower extremity Doppler vein negative for DVT Patient has received 3 L normal saline bolus, currently he is on Levophed currently at 8, weaning off Continue normal saline at 1 100 cc an hour Monitor intake output #Hypovolemic hyponatremia: Likely secondary to dehydration secondary to poor oral intake. Continue to monitor BMP #BART versus BART on CKD: Likely prerenal BART secondary to hypotension, cannot conclusively rule out ATN Admission serum creatinine:3.4 Baseline serum creatinine unknown. Monitor BMP this afternoon Monitor intake output chart Avoid nephrotoxic Urinary electrolytes Possible renal consult #Metabolic acidosis: Likely secondary to BART and dehydration and pneumonia #Elevated lactic acid: Likely secondary to hypotension: Left lower lobe pneumonia Follow repeat lactic acid level #Hyperkalemia: No significant EKG changes Follow repeat serum potassium level, will receive insulin with sliding scale #CODE STATUS: Full code #DVT prophylaxis: On heparin Attestations Medical Necessity Statement*: Patient requires hospitalization due to pneumonia, sepsis, metabolic acidosis, dehydration, BART, hypotension, shock, type 2 diabetes mellitus, critical care time spent over 35 minutes Coding Level of Care Code Acute Physical Therapist Assistant for g Fwd Diagnoses Shock R57.9 Dehydration E86.0 BART (acute kidney injury) N17.9 Hyponatremia E87.1 Hyperkalemia E87.5 Metabolic acidosis E87.2 Elevated lactic acid level R79.89 Left lower lobe pneumonia J18.9 Sepsis A41.9 Type 2 diabetes mellitus E11.9
[2021-11-18 13:07] LABS: Procalcitonin 0.41 ng/mL (0-0.5); Thyroid Stimulating Hormone 1.73 uIU/mL (0.27-4.20)
[2021-11-18 13:18] LABS: Anion Gap 20.1 (5-19); Blood Urea Nitrogen 34 mg/dL (8-23); C Reactive Protein 45.4 mg/L (0.0-4.9); Calcium 7.3 mg/dL (8.5-10.5); Carbon Dioxide 16 mmol/L (22-29); Chloride 103 mmol/L (98-107); Glomerular Filtration Rate 33.4 mL/min (90-130); Glucose 86 mg/dL (65-115); Osmolality Calculated 287 mOsm/kg (285-295); Potassium 4.1 mmol/L (3.5-5.1); Sodium 135 mmol/L (136-145)
--- NOTE | 2021-11-18 13:21 | PC.PHAR ---
PT AND PTS VERIFIED MEDICATIONS-
[2021-11-18 13:35] LABS: Cortisol Random 8.67 ug/dL (2.47-19.5)
[2021-11-18] MEDS: sodium chloride 0.9% 1,000 ML 100 ML IV (14:45)
[2021-11-18 17:35] LABS: Glucose Point of Care 89 mg/dL (70-110)
--- NOTE | 2021-11-18 18:15 | PC.NURSE ---
Shift Note Frequent safety and comfort rounds continue. Orders and nursing care completed as indicated. Patient not requiring Levophed since 1100 this am. Monitoring closely. came by to visit this afternoon and explained that patient wears 3L NC at home with sleep. Patient on 100ml/hr currently. No complaints of pain today. Patient up in chair with SBA for about 3 hours, tolerated well. Mr. Ramon had significant urine output and a BM today, see I&Os. Patient monitored for response to intervention and treatments. Education provided includes blood pressure management, frequently position changes, oxygen requirement for sleep. Patient verbalized understanding. [facility] if patient does not need assistance in blood pressure management. Will continue to monitor closely..
[2021-11-18 20:51] LABS: Add Urine Culture? No; Add Urine Microscopic? YES; Bacteria Urine TRACE /hpf; Bilirubin Urine Neg (Negative); Blood Urine 2+ (Negative); Glucose Urine UA Norm (Normal); Ketones Urine Negative (Negative); Leukocyte Esterase Urine Negative (Negative); Nitrate Urine Negative (Negative); Protein Urine Neg (Negative); RBC Urine 0-4 /hpf (0-2); Specific Gravity, Urine 1.015 (1.005-1.030); Squamous Epithelial Cell Urine 0-4 /hpf (0-5); Urine Appearance Clear (CLEAR); Urine Color Yellow (Yellow); Urobilinogen Urine Norm (Negative); WBC Urine 0-4 /hpf (0-5); pH Urine 5 (5-7)
[2021-11-19] VITALS (13 sets, daily range): BP systolic 99–128; BP diastolic 55–92; PULSE 76–112; RESP 16–28; TEMP 36.3–37.3; O2SAT 93–98
[2021-11-19] MEDS: acetaminophen 325 mg Tablet 650 MG PO (01:42)
[2021-11-19] MEDS: sodium chloride 0.9% 1,000 ML 100 ML IV (01:43)
--- NOTE | 2021-11-19 03:07 | PC.NURSE ---
Transfer Note Patient transferred to ICU from med-surg room 269 via bed. Handoff report given to BLANCA Melara. Patient oriented to environment and equipment. Covering service notified. Orders reviewed and will continue to monitor. Family and/or client relations representative notified. Patient transferred on 3LNC, all belongings taken with patient and placed at bedside.
--- NOTE | 2021-11-19 03:51 | PC.NURSE ---
Received transfer report from Kelly RIOS. Patient in bed/awake. Denies pain or discomfort. IV patent infusing NS at 100mL/hr. O2 3L NC. No needs voiced at this time.
[2021-11-19] MEDS: cefTRIAXone 1,000 MG in sodium chloride 0.9% (plus) 50 ML 100 MG IV (04:42)
[2021-11-19] MEDS: heparin 5,000 unit/mL INJ 1 mL 5000 UNIT SUBCUT ×2 (05:22→17:41)
[2021-11-19] MEDS: azithromycin 500 MG in sodium chloride 0.9% 250 ML 250 MG IV (05:22)
[2021-11-19 06:03] LABS: Basophils % 0.3 %; Eosinophils # 0.1 10^3/uL (0.0-0.8); Eosinophils % 0.7 %; Hematocrit 33.4 % (42.0-52.0); Hemoglobin 10.6 g/dL (11.7-16.6); Lymphocytes # 1.8 10^3/uL (0.8-4.8); Lymphocytes % 25.1 %; Mean Corpuscular HGB Conc 31.7 g/dL (30.0-36.0); Mean Corpuscular Hemoglobin 30.5 pg (28.0-34.0); Mean Corpuscular Volume 96.3 fl (80-94); Mean Platelet Volume 10.9 fL (7.4-10.4); Monocytes # 0.9 10^3/uL (0.2-0.9); Monocytes % 12.4 %; Neutrophils # 4.24 10^3/uL (1.8-7.7); Neutrophils % 60.6 %; Nucleated Red Blood Cells % 0 %; Platelet Count 187 10^3/cmm (130-400); Red Blood Count 3.47 10^6/uL (4.1-5.3); Red Cell Distribution Width 14.8 % (12.1-15.1)
[2021-11-19 06:16] LABS: Lactic Sepsis W/Reflex 1.1 mmol/L (0.5-2.2)
[2021-11-19 06:17] LABS: Alanine Aminotransferase 46 U/L (0-41); Albumin Level 3.3 g/dL (3.5-5.2); Alkaline Phosphatase 61 IU/L (40-130); Aspartate Amino Transferase 60 U/L (0-40); Blood Urea Nitrogen 23 mg/dL (8-23); C Reactive Protein 40.8 mg/L (0.0-4.9); Calcium 7.8 mg/dL (8.5-10.5); Carbon Dioxide 18 mmol/L (22-29); Chloride 100 mmol/L (98-107); Globulin 3.2 g/dL (1.3-4.6); Glomerular Filtration Rate 60.2 mL/min (90-130); Glucose 107 mg/dL (65-115); Magnesium 1.6 mg/dL (1.7-2.3); Osmolality Calculated 276 mOsm/kg (285-295); Phosphorus 2.1 mg/dL (2.5-4.5); Sodium 131 mmol/L (136-145); Total Bilirubin 0.4 mg/dL (0.15-1.2); Total Protein 6.5 g/dL (6.6-8.7)
[2021-11-19 07:27] LABS: Creatine Phosphokinase 672 U/L (39-308)
[2021-11-19] MEDS: phosphorus 250 mg Tablet PO ×2 (09:29→17:41)
[2021-11-19] MEDS: magnesium sulfate premix 2 GM/50 ML PIGGYBACK IV (09:29)
--- NOTE | 2021-11-19 09:34 | NM_ITS ---
WS: [id number] NUCLEAR MEDICINE VENTILATION/PERFUSION LUNG SCAN HISTORY: PE? COMPARISON: Chest radiograph 11/18/2021. TECHNIQUE: Ventilation: 32.6 mCi of Technetium 99 DTPA aerosol inhaled. Perfusion: 5.5 mCi of technetium 99m MAA IV. Moderate heterogeneous deposition of radionuclide. Cardiac silhouette is enlarged. Good perfusion throughout both lungs. There are no focal defects or unmatched wedge-shaped areas. NM/NM pul vent and perfus* 49220 IMPRESSION: Low probability pulmonary embolism.
[2021-11-19 09:58] LABS: Anion Gap 15.3 (5-19); Blood Urea Nitrogen 67 mg/dL (8-23); Calcium 6.7 mg/dL (8.5-10.5); Carbon Dioxide 21 mmol/L (22-29); Chloride 122 mmol/L (98-107); Glomerular Filtration Rate 37.7 mL/min (90-130); Glucose 318 mg/dL (65-115); Osmolality Calculated 350 mOsm/kg (285-295); Potassium 4.3 mmol/L (3.5-5.1)
[2021-11-19 10:40] LABS: Sodium 154 mmol/L (136-145)
[2021-11-19] MEDS: insulin lispro 100 unit/1 mL SUBCUT (14:26)
[2021-11-19 14:56] LABS: Anion Gap 19.3 (5-19); Blood Urea Nitrogen 21 mg/dL (8-23); Calcium 8.1 mg/dL (8.5-10.5); Carbon Dioxide 17 mmol/L (22-29); Chloride 99 mmol/L (98-107); Glomerular Filtration Rate 66.6 mL/min (90-130); Glucose 184 mg/dL (65-115); Osmolality Calculated 280 mOsm/kg (285-295); Potassium 4.3 mmol/L (3.5-5.1); Sodium 131 mmol/L (136-145)
--- NOTE | 2021-11-19 15:06 | PC.CHAP ---
Pastoral Care Encounter/Spiritual Assessment Type of Contact [] Declined green energy marketing analyst visit [] Patient/Family/Request visit [] Outpatient visit [] Follow-up visit [] Physician referral [] Code/Alert [xx] Routine visit [] Staff referral [] Actively dying [] Patient sleeping [] Family support [] [] Out of room [] Palliative care [] [] Receiving care in room [] Pre-surgical visit [] Trauma [] Long length of stay [] ICU visit [] Other: Relational/Emotional Strength [xx] Patient feels connected with others/family/visitors/staff [] Distress [] Loneliness/isolation [] Abandonment Spirituality of Patient [xx] Person of Elsa [] Attends Spiritism of their Elsa [xx] Believes in Prayer [] Reads Bible or Confucianism materials [] There are Spiritual issues to be addressed Adult Education Manager Interventions [xx] Prayer [xx] Active listening [xx] Non-anxious presence [] Spiritual/emotional support [] Crisis/trauma care [] Spiritual counseling [] Bereavement support [] Provided bereavement packet [] Provided Bible/devotional materials [] Provided toy/stuffed animal, coloring book to patient or family member [] Provided Communion [] Anointing/[place] [] Salvation [xx] Completed spiritual assessment [] Other: Impact on Illness or Injury [] Angry [] Fearful [] Anxious [] Often cries [] Exhaustion [xx] Unable to work [] Unable to attend episcopalian [xx] Unable to walk/stand [] Unable to read [] Unable to drive [] Unable to eat/drink [] Unable to sleep [xx] Unable to be with family [] Patient intubated [] Other: Summary Patient has breathing difficulties but not COPD. His is home with COPD and he wants to be with her to care for her. There are no near neighbors physically able to care for her properly while he is in hospital. He worries about her. They have been 45 years. They have kids in [place] and [place] and grandkids scattered all over. He also has great-grandchildren in [place] he has never seen because of the distance. Family are not good at keeping in touch but he doesn't feel estranged from family. They have done face time occasionally. Time spent with patient 6 minutes
--- NOTE | 2021-11-19 16:13 | P.PN_ITS ---
Subjective Subjective: Interval history: Patient was seen this morning, he sitting up beside the bed currently on 2 L, complaining of some shortness of breath, but overall getting better, no nausea, no vomiting, no abdominal pain, no chest pain, Vitals/I&O/Wt Last Vital Signs Temp 98.9 F 11/19/21 12:00 Pulse 112 H 11/19/21 12:00 Resp 20 H 11/19/21 12:00 BP 116/57 11/19/21 12:00 Pulse Ox 94 11/19/21 12:00 11/19/21 11/19/21 11/19/21 06:59 14:59 22:59 Intake Total 1300 / 3117.453 1050 / 1050 Output Total 600 / 2225 Balance 700 / 783.982 7730 / 1050 Weight last 48 hrs Weight 100.465 kg Physical Exam Const: COMMON NORMALS: no acute distress and patient oriented x3 Resp: COMMON NORMALS: normal respiratory effort, No retractions and No use of accessory muscles AUSCULTATION: wheezes Cardio: COMMON NORMALS: regular rate, regular rhythm, S1 normal heart sound present and S2 normal heart sound present RATE: regular rate RHYTHM: regular rhythm HEART SOUNDS: S1 normal heart sound present and S2 normal heart sound present GI: COMMON NORMALS: Normal to inspection, nondistended, normoactive bowel sounds present, Soft to palpation and non-tender PALPATION: Yes Soft to palpation Extremity: COMMON NORMALS: no pedal edema Neuro: COMMON NORMALS: patient oriented x3 Psych: COMMON NORMALS: mental status grossly normal Data : 11/19/21 05:00 11/19/21 14:26 Micro: Microbiology 11/18/21 19:00 Bacterial Antigens - Final Urine,Voided 11/18/21 02:40 Blood Culture - Preliminary Blood NEGATIVE TO DATE 11/18/21 02:40 Blood Culture - Preliminary Blood NEGATIVE TO DATE 11/18/21 19:00 Legionella Urinary Antigen - Final Urine,Voided A&P Assessment and plan (1) Shock: Status: Acute (2) Dehydration: Status: Acute (3) BART (acute kidney injury): Status: Acute (4) Hyponatremia: Status: Acute (5) Hyperkalemia: Status: Acute (6) Metabolic acidosis: Status: Acute (7) Elevated lactic acid level: Status: Acute (8) Left lower lobe pneumonia: Status: Acute (9) Sepsis: Status: Acute (10) Type 2 diabetes mellitus: Status: Acute Additional A&P Information 66 year old male with no significant past medical history came in with chief complaint of worsening malaise, generalized weakness, going on for the last 1 week, it started after he took his booster dose of Moderna, Since then he has been feeling progressively weak, has experienced decreasing appetite and poor oral intake. Has mild shortness of breath, no cough. He denies any fever, chest pain, palpitation, nausea vomiting. #Left lower lobe pneumonia with sepsis -Continue azithromycin, Rocephin -Off Levophed -Stop fluids -Blood cultures, sputum cultures, urine bacterial antigens -Flu negative, COVID-negative -VQ scan, low probability of pulmonary emboli #Elevated anion gap, metabolic acidosis, lactic acidosis -Serum ketones negative -However A1c 8.3, type 2 diabetes new onset -Recheck BMP #New onset type 2 diabetes mellitus, A1c 8.2, low-dose sliding scale, Levemir 5 units every 24 hours #Hypovolemic shock: Resolved, likely secondary to poor oral intake, type 2 diabetes, left lower lobe pneumonia Follow blood culture Follow lower extremity Doppler vein negative for DVT Patient has received 3 L normal saline bolus, currently he is on Levophed currently at 8, weaning off fluids stopped Monitor intake output #Hypovolemic hyponatremia: Serum sodium 131, likely secondary to dehydration secondary to poor oral intake. Continue to monitor BMP #BART versus BART on CKD: Likely prerenal BART secondary to hypotension, cannot conclusively rule out ATN Admission serum creatinine:3.4, currently 1.1 Baseline serum creatinine unknown. Monitor BMP this afternoon Monitor intake output chart Avoid nephrotoxic Urinary electrolytes Possible renal consult #Metabolic acidosis: Resolved, likely secondary to BART and dehydration and pneumonia #Elevated lactic acid: Likely secondary to hypotension: Left lower lobe pn eumonia Follow repeat lactic acid level #Hyperkalemia: No significant EKG changes Follow repeat serum potassium level, will receive insulin with sliding scale #CODE STATUS: Full code #DVT prophylaxis: On heparin Attestations Medical Necessity Statement*: Patient requires hospitalization for left lower lobe pneumonia Coding Level of Care Code Acute Compliance Specialist for [facility] Fwd Diagnoses Shock R57.9 Dehydration E86.0 BART (acute kidney injury) N17.9 Hyponatremia E87.1 Hyperkalemia E87.5 Metabolic acidosis E87.2 Elevated lactic acid level R79.89 Left lower lobe pneumonia J18.9 Sepsis A41.9 Type 2 diabetes mellitus E11.9
[2021-11-19 23:04] LABS: Glucose Point of Care 179 mg/dL (70-110)
[2021-11-19 23:04] LABS: Glucose Point of Care 118 mg/dL (70-110)
[2021-11-20] MEDS: cefTRIAXone 1,000 MG in sodium chloride 0.9% (plus) 50 ML 100 MG IV (03:54)
[2021-11-20] MEDS: azithromycin 500 MG in sodium chloride 0.9% 250 ML 250 MG IV (04:45)
[2021-11-20 04:46] LABS: Basophils % 0.3 %; Eosinophils # 0.1 10^3/uL (0.0-0.8); Eosinophils % 1.1 %; Hematocrit 32.7 % (42.0-52.0); Hemoglobin 10.6 g/dL (11.7-16.6); Lymphocytes # 1.4 10^3/uL (0.8-4.8); Lymphocytes % 18.9 %; Mean Corpuscular HGB Conc 32.4 g/dL (30.0-36.0); Mean Corpuscular Hemoglobin 30.7 pg (28.0-34.0); Mean Corpuscular Volume 94.8 fl (80-94); Mean Platelet Volume 10.9 fL (7.4-10.4); Monocytes % 14.1 %; Neutrophils # 4.67 10^3/uL (1.8-7.7); Neutrophils % 64.8 %; Nucleated Red Blood Cells % 0 %; Platelet Count 202 10^3/cmm (130-400); Red Blood Count 3.45 10^6/uL (4.1-5.3); Red Cell Distribution Width 14.7 % (12.1-15.1); White Blood Count 7.2 10^3/uL (4.0-10.0)
[2021-11-20] MEDS: heparin 5,000 unit/mL INJ 1 mL 5000 UNIT SUBCUT (04:46)
[2021-11-20 05:29] LABS: Alanine Aminotransferase 40 U/L (0-41); Albumin Level 3.5 g/dL (3.5-5.2); Alkaline Phosphatase 75 IU/L (40-130); Anion Gap 17.2 (5-19); Aspartate Amino Transferase 51 U/L (0-40); Blood Urea Nitrogen 19 mg/dL (8-23); C Reactive Protein 69.5 mg/L (0.0-4.9); Carbon Dioxide 21 mmol/L (22-29); Chloride 101 mmol/L (98-107); Globulin 3.4 g/dL (1.3-4.6); Glomerular Filtration Rate 83.9 mL/min (90-130); Glucose 126 mg/dL (65-115); Magnesium 1.7 mg/dL (1.7-2.3); Osmolality Calculated 284 mOsm/kg (285-295); Phosphorus 2.4 mg/dL (2.5-4.5); Potassium 4.2 mmol/L (3.5-5.1); Sodium 135 mmol/L (136-145); Total Bilirubin 0.5 mg/dL (0.15-1.2); Total Protein 6.9 g/dL (6.6-8.7)
[2021-11-20 05:31] VITALS: BP 106/70; PULSE 85; RESP 17; TEMP 36.6; O2SAT 97
[2021-11-20 05:35] LABS: Lactate (Lactic Acid level) 0.9 mmol/L (0.5-2.2)
[2021-11-20 06:36] LABS: Creatine Phosphokinase 363 U/L (39-308)
[2021-11-20] MEDS: phosphorus 250 mg Tablet PO (08:19)
[2021-11-20 09:07] VITALS: BP 128/79; PULSE 100; RESP 17; TEMP 36.7; O2SAT 96
[2021-11-20 11:30] VITALS: O2SAT 94
--- NOTE | 2021-11-20 12:12 | PC.NURSE ---
THIS NURSE PULLED PATIENT'S CENTRAL LINE. CATHETER TIP INTACT.
--- NOTE | 2021-11-20 12:12 | PM.DCS ---
Discharge Providers Date of Admission: 11/18/21 04:17 Date of Discharge: November 20, 2021 Attending Provider at Admission: Dean Kenny MD Attending Provider at Discharge: Faizan Hayward MD Primary Care Provider: Aaliyah Grayson APN Diagnoses at Discharge Discharge Diagnosis (1) Shock: Status: Acute (2) Dehydration: Status: Acute (3) BART (acute kidney injury): Status: Acute (4) Hyponatremia: Status: Acute (5) Hyperkalemia: Status: Acute (6) Metabolic acidosis: Status: Acute (7) Elevated lactic acid level: Status: Acute (8) Left lower lobe pneumonia: Status: Acute (9) Sepsis: Status: Acute (10) Type 2 diabetes mellitus: Status: Acute Reason for Visit Reason for Visit: WEAKNESS, DIFF WALKING Hospital Course Hospital Course Christophe is a 66-year-old white male who presented to the hospital with malaise, weakness. He was found to have a low blood pressure, consistent with shock as well as pneumonia and acute kidney injury. There was no evidence of DKA and serum ketones were negative. He was hydrated, placed on Rocephin and azithromycin, oxygen, and pressors. He improved rather rapidly, coming off Levophed and was able to transition to the floor. By November 20 he been afebrile, greater than 24 hours. He had transition to room air oxygen. Blood pressure was acceptable. Renal function had improved dramatically. It was thought he could go home and finish up 7 days of cefdinir, 1 day of Zithromax. His metformin, hydrochlorothiazide, lisinopril will be held on discharge secondary to his history of acute kidney injury and significant acidosis until he can be reevaluated with a BMP prior to his primary care provider. He should return for any worsening. Consideration of x-ray in 2 weeks for follow-up of pneumonia. Other studies done were an echocardiogram which demonstrated preserved EF, 1/4 diastolic dysfunction. Venous duplex negative for DVT, VQ scan low probability for pulmonary embolism. Physical Exam Narrative: EXAM NARRATIVE: General exam no distress Neck is supple Cardiovascular regular rate and rhythm Lungs clear no wheezing or crackles Abdomen is soft nontender positive bowel sounds Extremities no cyanosis clubbing or edema Discharge Data Data Completed and Pending: Completed Studies During Hospitalization Category Date Time Status CT head wo con* [id number] Urgent Cat Scan 11/18/21 01:22 Completed XR chest 1V jovi ble [id number] Stat Exams 11/18/21 01:21 Completed XR chest 1V jovi ble [id number] Urgent Exams 11/18/21 04:04 Completed NM pul vent and p erfus* [id number] Sky ne Nuc Med 11/19/21 09:34 [place] [id number] Routin e Ultrasound 11/18/21 05:11 Completed CV. echo complete * [id number] Routine Ultrasound 11/18/21 05:56 Completed Pending at discharge Category Date Time Status Blood Culture Sta t Lab 11/18/21 02:40 Results C Reactive Protei n AM LABS Lab 11/21/21 04:00 Ordered Clostridioides Di fficile PCR Routin e Lab 11/18/21 07:10 Ordered Complete Blood Co unt w/Auto AM LABS Lab 11/21/21 04:00 Ordered Comprehensive Met abolic Panel AM LA BS Lab 11/21/21 04:00 Ordered Creatine Phosphok inase AM LABS Lab 11/21/21 04:00 Ordered Enteric Bacterial Panel by PCR Sita ine Lab 11/18/21 07:10 Ordered Enteric Parasite Panel by PCR Sky ne Lab 11/18/21 07:10 Ordered Immunochemical Fe agustina OCB Routine Lab 11/18/21 07:10 Ordered Lactate (Lactic A jamie level) AM LABS Lab 11/21/21 04:00 Ordered Lactoferrin Sitai ne Lab 11/18/21 07:10 Ordered Magnesium AM LABS Lab 11/21/21 04:00 Ordered Phosphorus AM LAB S Lab 11/21/21 04:00 Ordered Labs from last 24 hours 11/20/21 11/20/21 11/20/21 03:55 03:55 03:55 WBC 7.2 RBC 3.45 L Hgb 10.6 L Hct 32.7 L MCV 94.8 H MCH 30.7 MCHC 32.4 RDW 14.7 Plt Count 202 MPV 10.9 H Neut % (Auto) 64.8 Lymph % (Auto) 18.9 Converse % (Auto) 14.1 Eos % (Auto) 1.1 Baso % (Auto) 0.3 Neut # (Auto) 4.67 Lymph # (Auto) 1.4 Converse # (Auto) 1.0 H Eos # (Auto) 0.1 Baso # (Auto) 0.0 Nucleated RBC % (a uto) 0 Nucleated RBCs # 0.0 Sodium 135 L Potassium 4.2 Chloride 101 Carbon Dioxide 21 L Anion Gap 17.2 BUN 19 Creatinine 0.9 GFR Calculation 83.9 L Glucose 126 H POC Glucose Calculated Osmolal ity 284 L Lactate 0.9 Calcium 8.0 L Phosphorus 2.4 L Magnesium 1.7 Total Bilirubin 0.5 AST 51 H ALT 40 Alkaline Phosphata se 75 Creatine Kinase C-Reactive Protein 69.5 H Total Protein 6.9 Albumin 3.5 Globulin 3.4 11/20/21 11/19/21 11/19/21 03:53 18:18 14:26 WBC RBC Hgb Hct MCV MCH MCHC RDW Plt Count MPV Neut % (Auto) Lymph % (Auto) [place]verse % (Auto) Eos % (Auto) Baso % (Auto) Neut # (Auto) Lymph # (Auto) Converse # (Auto) Eos # (Auto) Baso # (Auto) Nucleated RBC % (a uto) Nucleated RBCs # Sodium 131 L D Potassium 4.3 Chloride 99 Carbon Dioxide 17 L Anion Gap 19.3 H BUN 21 Creatinine 1.1 GFR Calculation 66.6 L Glucose 184 H POC Glucose 118 H Calculated Osmolal ity 280 L Lactate Calcium 8.1 L Phosphorus Magnesium Total Bilirubin AST ALT Alkaline Phosphata se Creatine Kinase 363 H* C-Reactive Protein Total Protein Albumin Globulin 11/19/21 12:12 WBC RBC Hgb Hct MCV MCH MCHC RDW Plt Count MPV Neut % (Auto) Lymph % (Auto) [place]verse % (Auto) Eos % (Auto) Baso % (Auto) Neut # (Auto) Lymph # (Auto) [place]verse # (Auto) Eos # (Auto) Baso # (Auto) Nucleated RBC % (a uto) Nucleated RBCs # Sodium Potassium Chloride Carbon Dioxide Anion Gap BUN Creatinine GFR Calculation Glucose POC Glucose 179 H Calculated Osmolal ity Lactate Calcium Phosphorus Magnesium Total Bilirubin AST ALT Alkaline Phosphata se Creatine Kinase C-Reactive Protein Total Protein Albumin Globulin Vitals: Last Vital Signs Temp 98.0 F 11/20/21 09:07 Pulse 100 11/20/21 09:07 Resp 17 11/20/21 09:07 BP 128/79 11/20/21 09:07 Pulse Ox 94 11/20/21 11:30 Discharge Plan Discharge Patient Disposition: Home Condition: Stable Prescriptions: New ipratropium-albuterol 0.5 mg-3 mg(2.5 mg base)/3 mL solution for nebulization 3 ml inhalation Q6H PRN (Reason: shortness of breath or wheezing) Qty: 90 RF: 0 azithromycin [Zithromax] 500 mg tablet 500 mg PO DAILY 1 Days Qty: 1 RF: 0 cefdinir 300 mg capsule 300 mg PO BID 7 Days Qty: 14 RF: 0 Continued pantoprazole [Protonix] 40 mg tablet,delayed release (DR/EC) 40 mg PO BID RF: 0 atorvastatin 40 mg tablet 40 mg PO DAILY RF: 0 metformin 500 mg tablet 1,000 mg PO BID RF: 0 venlafaxine 75 mg capsule,extended release 24hr 75 mg PO BID PRN (Reason: PT STATE USES PRN-RX FILLED FOR BID) RF: 0 acetaminophen-codeine 300-30 mg tablet 1 tab PO Q4H PRN (Reason: Pain) RF: 0 glipizide 2.5 mg tablet extended release 24hr 2.5 mg PO DAILY@12 RF: 0 allopurinol 300 mg tablet 300 mg PO DAILY PRN (Reason: GOUT) RF: 0 ProAir HFA 90 mcg/actuation HFA aerosol inhaler 2 puff inhalation QID PRN (Reason: Shortness Of Breath) RF: 0 Januvia 100 mg tablet 100 mg PO DAILY RF: 0 aspirin 325 mg Tablet 325 mg PO Q6H PRN (Reason: Pain) RF: 0 Discontinued cyclobenzaprine 10 mg tablet 10 mg PO BID PRN (Reason: Muscle Spasm) RF: 0 tizanidine 4 mg tablet 4 mg PO TID PRN (Reason: Muscle Spasm) RF: 0 chlorzoxazone 500 mg tablet 500 mg PO TID PRN (Reason: Muscle Spasm) RF: 0 lisinopril 20 mg tablet 20 mg PO DAILY RF: 0 hydrochlorothiazide 25 mg tablet 25 mg PO DAILY RF: 0 BC Pain Relief 845-65 mg Powder In Packet 1 ea PO PRN RF: 0 Discharge Orders: Discharge Order (Routine); Ordered 11/20/21 Ordered By: Faizan Hayward Referrals: Aaliyah Grayson APN [Primary Care Provider] - 4-7 days (Consider chest x-ray to 2 to 3 weeks, follow-up pneumonia BMP on follow-up) Discharge Diet: Diabetic Discharge Activity: Increase activity as tolerated Patient Instructions: Type 2 Diabetes, Hyponatremia (DC), Hyperkalemia (DC), Opioid Safety Activity Restrictions/Additional Instructions: Take all medicine as prescribed Return for any concerns Keep well-hydrated BMP on follow-up Discharge Attestations Time Spent in Discharge Care*: greater than 30 min Quality Metrics Clinical Quality Measures During this hospital stay, did patient experience: None Coding Level of Care Code Acute Chg FW DC note Diagnoses Shock R57.9 Dehydration E86.0 BART (acute kidney injury) N17.9 Hyponatremia E87.1 Hyperkalemia E87.5 Metabolic acidosis E87.2 Elevated lactic acid level R79.89 Left lower lobe pneumonia J18.9 Sepsis A41.9 Type 2 diabetes mellitus E11.9
[2021-11-20 13:15] VITALS: BP 121/78; PULSE 90; RESP 18; TEMP 36.9; O2SAT 93
[2021-11-20 13:34] VITALS: BP 121/78; PULSE 90; RESP 18; TEMP 36.9; O2SAT 93
== END 2021-11-20 13:34 | disposition home or self-care (01) | DRG 871 ==
LOC: ER 04:18 → ICU 04:20 → MEDSURG 11-19 02:34
PROVIDERS: Family Medicine; Nurse Practitioner Family; Admitting Provider Internal Medicine; Emergency Provider Emergency Medicine; PCP Nurse Practitioner Family; Visit Provider Internal Medicine
DX: A41.9 Sepsis, unspecified organism (principal); R57.1 Hypovolemic shock; J18.9 Pneumonia, unspecified organism; N17.9 Acute kidney failure, unspecified; E87.1 Hypo-osmolality and hyponatremia; I95.9 Hypotension, unspecified; F41.8 Other specified anxiety disorders; K21.9 Gastro-esophageal reflux disease without esophagitis; Z90.49 Acquired absence of other specified parts of digestive tract; E86.0 Dehydration; E87.5 Hyperkalemia; E11.22 Type 2 diabetes mellitus with diabetic chronic kidney disease; N18.9 Chronic kidney disease, unspecified; Z79.84 Long term (current) use of oral hypoglycemic drugs
CPT/HCPCS: 36416; 36592; 36600; 70450; 71045; 78014; 80048; 80053; 81001; 82009; 82533; 82550; 82803; 82962; 83036; 83605; 83735; 83880; 84100; 84145; 84443; 84484; 85025; 85378; 86140; 86403; 87040; 87426; 87449; 87804; 93005; 93306; 93970; 96365; 96367; 96372; 99285; A9540; A9567; J0456; J0696; J1644; J1815; J3475; J7030; J7050

== ENCOUNTER 2022-01-31 08:51 | Outpatient (CLI) | payer MEDICARE, SELFPAY ==
--- NOTE | 2022-01-31 09:01 | CT_ITS ---
WS: [id number] CT CHEST WITH INTRAVENOUS CONTRAST HISTORY: PNEUMONIA/DYSPNEA TECHNIQUE: Contiguous 5 mm axial imaging performed on the thorax. Coronal and sagittal reformats are submitted. All CT scans at [facility] use at least one of these dose optimization techniques: automated exposure control; mA and/or kV adjustment per patient size (includes targeted exams where dose is matched to clinical indication); or iterative reconstruction. CONTRAST: Omnipaque 300; 95 mL IV. DLP: 727.72 mGy.cm COMPARISON: Chest radiograph 11/18/2021 Lungs and central airway: Moderate pulmonary hyperexpansion. There are a few very thin linear areas o f atelectasis or scarring at the lung bases. Multi lobar areas of groundglass opacification. These ar e subsegmental and segmental in distribution and involve all lobes. No additional areas of dense cons olidation or pneumonia. Pleura: Normal. No pleural effusion. Heart and pericardium: Normal size. Increased amount of pericardial fat. At least moderate extensive coronary artery calcifications. Mediastinum and tim: No mediastinum or hilar adenopathy. Vessels: Mild atherosclerotic changes within the thoracic aorta. Pulmonary artery size is normal. Nor mal origin of the great vessels with only very minimal atherosclerotic plaque. There is a focal filli ng defect in the RIGHT axillary and brachial veins. Chest wall and lower neck: No soft tissue masses. Upper abdomen: Cholelithiasis. No evidence for acute cholecystitis. Well-circumscribed adrenal mass m easures 2.7 x 2.7 cm consistent with an adenoma. Osseous structures: Remote healed rib fractures in the RIGHT lateral thorax. Degenerative spondylitic changes in the thoracic spine. CT/CT chest w con* [id number] IMPRESSION: 1. No focal pneumonia. 2. Multilobar areas of mild groundglass attenuation. Most likely this is relat ed to pneumonitis and small vessel and airways disease. 3. Filling defect in the RIGHT axillary and brachial vein may be of thrombus versus admixing of blood and contrast. Recommend follow-up RIGHT upper extremit y venous ultrasound. 4. Cholelithiasis without acute cholecystitis. 5. RIGHT adrenal adenoma, stable since 02/20/2020.
[2022-01-31] MEDS: iohexol 300 mg/mL 100 mL Btl IV (09:26)
== END 2022-01-31 08:52 | disposition home or self-care (01) ==
PROVIDERS: PCP Nurse Practitioner Family; Visit Provider Nurse Practitioner Family
DX: J18.9 Pneumonia, unspecified organism (principal); R06.00 Dyspnea, unspecified; K80.20 Calculus of gallbladder without cholecystitis without obstruction; D35.01 Benign neoplasm of right adrenal gland
CPT/HCPCS: 71260

== ENCOUNTER 2022-05-25 08:44 | Outpatient (CLI) | payer MEDICARE, SELFPAY ==
--- NOTE | 2022-05-25 09:03 | MR_ITS ---
WS: [id number] MRI HEAD WITHOUT CONTRAST WITH ATTENTION TO THE INTERNAL AUDITORY CANALS TECHNIQUE: Sagittal T1, T2 axial, T2 axial flair, axial susceptibility weighted imaging, axial diffus ion weighted images, and coronal T2 images were obtained. PreT1 axial and T1 coronal images. ADC and FSPGR images. Axial fiesta imaging. Gadolinium not administered. 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 This is best seen on the T2 imaging today. This measures approximately 7 x 6 mm unchanged. No hydro cephalus. No evidence of restricted diffusion to suggest acute ischemia. Ventricular system and basal cisterns are patent. Moderate small vessel changes. Moderate parenchymal volume loss. 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 Chronic lacunar infarct LEFT cere bellum. 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 Normal vascular flow voids at the skull base. Normal posterior nasopharynx. Paranasal sinuses are well aerated. Mastoid air cells well aerated. Pro ximal 7th and 8th cranial nerves are normal in appearance. Visualized upper cervical spine is normal. No hemosiderin on the susceptibly weighted images. Normal trigeminal nerve root entry zones. Cavernou s sinuses and Meckel's cave appear normal where visualized. No evidence of proximal IAC or CP angle m ass on this noncontrast IAC study. Mild symmetric atrophy temporal lobes and hippocampal formations. MR/MR iac's con [id number] IMPRESSION: 1. No evidence of restricted diffusion to suggest acute ischemia. 2. Noncontrast IACs are normal in appearance. Normal trigeminal nerve root ent ry zones. Proximal 7th and 8th cranial nerves appear normal. 3. No hemosiderin on susceptibly weighted images. 4. Moderate small vessel changes with moderate parenchymal volume loss. 5. Small chronic cortical infarct RIGHT parietal lobe with encephalomalacia an d gliosis. 6. Tiny chronic lacunar infarct in the LEFT cerebellum. 7. 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 8. 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 No hydrocephalus. 9. No other significant findings.
== END 2022-05-25 08:45 | disposition home or self-care (01) ==
PROVIDERS: PCP Nurse Practitioner Family; Visit Provider Specialist
DX: H90.3 Sensorineural hearing loss, bilateral (principal); G93.89 Other specified disorders of brain; I63.9 Cerebral infarction, unspecified; I63.81 Other cerebral infarction due to occlusion or stenosis of small artery; G45.0 Vertebro-basilar artery syndrome
CPT/HCPCS: 70551

== ENCOUNTER 2022-11-14 12:00 | Outpatient (CLI) | payer MEDICARE, SELFPAY ==
--- NOTE | 2022-11-14 12:27 | US_ITS ---
WS: [id number] Limited abdomen ultrasound, LEFT lower quadrant. HISTORY: History of hernia. LEFT lower quadrant pain. Ultrasound directed to the LEFT lower quadrant in the area of pain. There is a soft tissue defect wit hin the abdominal wall with herniating, nonperistalsing soft tissue most consistent with an omental h ernia. No peristalsis. The area of protrusion measures 5.6 x 3.9 cm. US/US abdomen limited [id number] IMPRESSION: LEFT lower quadrant abnormality corresponds to a fat-containing abdominal wall hernia. At this time there are no peristalsing loops of bowel.
== END 2022-11-14 12:01 | disposition home or self-care (01) ==
PROVIDERS: PCP Nurse Practitioner Family; Visit Provider Nurse Practitioner Family
DX: R10.32 Left lower quadrant pain (principal)
CPT/HCPCS: 76705